=== PATIENT | male | born 1940 | race Caucasian/White ===

== ENCOUNTER → 2016-03-30 | Outpatient (CLI) | payer MEDICARE | LOC: RAD 10:05 | PROVIDERS: ATTEND Family Medicine | DX: N28.81 Hypertrophy of kidney (principal) | CPT/HCPCS: 76775 ==

== ENCOUNTER → 2016-04-07 | Outpatient (CLI) | payer MEDICARE | LOC: OD 17:11 | PROVIDERS: ATTEND Family Medicine | DX: M54.2 Cervicalgia (principal); M47.892 Other spondylosis, cervical region | CPT/HCPCS: 72050 ==

== ENCOUNTER 2016-05-10 09:15 | Day surgery (SDC) | payer MEDICARE ==
[~2016-05-10 09:15] MED LIST: PROPOFOL INJ 200 MG/20 ML VIAL IV ONE
[2016-05-10 10:47] VITALS: BP 112/72
--- NOTE | 2016-05-10 12:26 | Operative Report ---
Operative Report DATE OF SURGERY: 05/10/16 Operative Report: The risks benefits and alternatives of the procedure explained to the patient in detail and informed consent is obtained that GIF Olympus video scope was inserted into the patient's mouth and hypopharynx the esophagus is identified intubated and insufflated the scope was then advanced through the esophagus stomach and duodenum retroflexion maneuver is done the esophagus stomach and first and second portions of the duodenum examined PREOPERATIVE DIAGNOSIS: Regurgitation, nausea vomiting POSTOPERATIVE DIAGNOSIS: Duodenitis, gastritis, biopsies obtained to rule out for Helicobacter pylori. Hiatal hernia OPERATION: EGD with biopsy SURGEON: MARYURI ACHARYA ANESTHESIA: LMAC TISSUE REMOVED OR ALTERED: Gastric specimen obtained rule out Helicobacter pylori COMPLICATIONS: None. ESTIMATED BLOOD LOSS: none. INTRAOPERATIVE FINDINGS: As described above. No ulcers noted. PROCEDURE: Patient tolerated the procedure well. No immediate postprocedure complications are noted. Patient is discharged in good condition. Discharge date 05/10/2016. Discharge diet: Regular. Discharge activity: Regular. 2-3 week follow-up to discuss findings. We'll await on biopsies. Patient is instructed call the office or proceed to the emergency room should there be any further issues or questions.
== END 2016-05-10 10:22 | disposition home or self-care (01) ==
LOC: END 09:15
PROVIDERS: ATTEND Internal Medicine Gastroenterology
PROC: 0DB68ZX Excision of Stomach, Via Natural or Artificial Opening Endoscopic, Diagnostic (ICD-10-PCS; principal; 2016-05-10 11:00)
DX: R11.10 Vomiting, unspecified (principal); K29.50 Unspecified chronic gastritis without bleeding; K29.80 Duodenitis without bleeding; I10 Essential (primary) hypertension; E78.5 Hyperlipidemia, unspecified; J44.9 Chronic obstructive pulmonary disease, unspecified; F17.210 Nicotine dependence, cigarettes, uncomplicated; Z79.51 Long term (current) use of inhaled steroids; Z88.8 Allergy status to other drugs, medicaments and biological substances; Z79.899 Other long term (current) drug therapy
CPT/HCPCS: 43239; 88341 ×2; 88305 ×2; J2704; 740

== ENCOUNTER 2016-05-13 22:05 | Emergency (ER) | payer MEDICARE ==
[2016-05-13] MEDS ORDERED: IPRATROPIUM/ALBUTEROL 0.5-2.5 MG/3 ML AMPUL NEB ONE (23:48)
--- NOTE | 2016-05-14 | ER Document Report ---
ED General - General Chief Complaint: Weakness Stated Complaint: CHEST PAIN,SHORTNESS OF BREATH,FALL/HEAD PAIN Notes: Patient is 75-year-old male presents with complaint of falling. He's been following for approximate 4 months. His primary care doctor has been a full workup. He's had MRIs of his head which were negative. X-ray of the cervical spine was negative. He does have a walker at home. He says he sometimes uses a walker. He says he does not feel like the room is spinning. He does not feel nauseous or feel like just the vomit. He says that he just feels as if he is off balance and his whole body's week. He did quit smoking February 07. He says only time he has chest pains if he is coughing. He does feel some shortness of breath. No history of coronary disease. No fevers or infections. No focal weakness or numbness. No other complaints at this time. TRAVEL OUTSIDE OF THE [place] IN LAST 30 DAYS: No - Related Data Allergies/Adverse Reactions: ertapenem [From Invanz] Adverse Reaction (Verified 05/13/16 22:32) Hives Past Medical History - Social History Smoking Status: Former Smoker Frequency of alcohol use: None Drug Abuse: None Family History: Reviewed & Not Pertinent Patient has suicidal ideation: No Patient has homicidal ideation: No - Past Medical History Cardiac Medical History: Reports: Hx Hypertension Denies: Hx Coronary Artery Disease, Hx Heart Attack Pulmonary Medical History: Reports: Hx COPD, Hx Pneumonia Denies: Hx Asthma, Hx Bronchitis Neurological Medical History: Denies: Hx Cerebrovascular Accident, Hx Seizures Renal/ Medical History: Denies: Hx Peritoneal Dialysis Musculoskeltal Medical History: Reports Hx Arthritis Past Surgical History: Denies: Hx Pacemaker - Immunizations Hx Diphtheria, Pertussis, Tetanus Vaccination: Yes Hx Pneumococcal Vaccination: 02/07/15 Review of Systems - Review of Systems Notes: My Normal Review Basic REVIEW OF SYSTEMS: CONSTITUTIONAL : Denies fever, chills, or sweats. Denies recent illness. EENT: Denies eye, ear, throat, or mouth pain or symptoms. Denies nasal or sinus congestion. CARDIOVASCULAR: Denies chest pain with cough RESPIRATORY: Cough GASTROINTESTINAL: Denies abdominal pain. Denies nausea, vomiting, or diarrhea. Denies constipation. Last BM: MUSCULOSKELETAL: Denies neck or back pain or joint pain or swelling. SKIN: Denies rash or skin lesions. NEUROLOGICAL: Denies altered mental status or loss of consciousness. Denies headache. Denies weakness or paralysis or loss of use of either side. Denies problems with gait or speech. Denies sensory or motor loss. ALL OTHER SYSTEMS REVIEWED AND NEGATIVE. Physical Exam - Vital signs Vitals: Temp Pulse Resp BP Pulse Ox 97.7 F 98 20 98/71 L 96 05/13/16 22:23 05/13/16 22:23 05/13/16 22:23 05/13/16 22:23 05/13/16 22:23 - Notes Notes: General Appearance: Well nourished, alert, cooperative, no acute distress, no obvious discomfort. Vitals: reviewed, See vital signs table. Head: no swelling or tenderness to the head Eyes: PERRL, EOMI, Conjuctiva clear Mouth: No decreasd moisture Throat: No tonsillar inflammation, No airway obstruction, No lymphadenopathy Ears: No wax in the right ear. Small amount of wax in the left ear. TMs are usually visualized bilaterally and normal appearing. Neck: Supple, no neck tenderness, No thyromegaly Lungs: No wheezing, No rales, rhonchorus breath sounds., No accessory muscle use , good air exchange bilaterally. Heart: Normal rate, Regular rythm, No murmur, no rub Abdomen: Normal BS, soft, No rigidity, No abdominal tenderness, No guarding, no rebound, no abdominal masses, no organomegaly Extremities: strength 5/5 in all extremities, good pulses in all extremities, no swelling or tenderness in the extremities, no edema. Skin: warm, dry, appropriate color, no rash Neuro: speech clear, oriented x 3, normal affect, responds appropriately to questions. Cranial nerves II through XII are intact. Patient is globally weak on exam. He is able to stand but obviously has some balance issues when standing. Patient appears off balance with or without doing the Romberg. He is able to keep his arm still without any drift. Course - Re-evaluation Re-evalutation: 05/14/16 01:48 Patient's troponin is very elevated. I do not see any other reason first troponin elevation and possible an STEMI. His renal function is completely normal. He has no previous history of coronary disease. I do not think that an STEMI is causing his 4 months of ataxia; however, I do think it's contributing to the severe weakness he's been having over last week. He did mention some intermittent chest pain. Currently he is chest pain-free at this time. I will give patient a dose of aspirin. I will also give him a dose of Lovenox. He denies any recent bleeding. Denies vomiting blood. No recent blood in the stool. No other complaint at this time. I do have a call out to [facility] for possible transfer for and am waiting to hear back. 05/14/16 01:49 - Vital Signs Vital signs: Temp Pulse Resp BP Pulse Ox 97.9 F 98 15 98/54 L 98 05/14/16 02:56 05/13/16 22:23 05/14/16 06:37 05/14/16 06:37 05/14/16 06:37 - Laboratory Result Diagrams: 05/14/16 00:46 05/14/16 00:46 Laboratory results interpreted by me: 05/14/16 05/14/16 05/14/16 00:46 00:46 00:46 WBC 12.9 H RBC 5.68 H MCH 26.9 L Absolute Neutrophils 9.2 H Potassium 3.4 L BUN 25 H Est GFR (Non-Af Amer) 59 L Glucose 139 H Calcium 10.5 H Creatine Kinase 211 H CK-MB (CK-2) 10.20 H Urine Ketones 05/14/16 00:46 WBC RBC MCH Absolute Neutrophils Potassium BUN Est GFR (Non-Af Amer) Glucose Calcium Creatine Kinase CK-MB (CK-2) Urine Ketones TRACE H - Transfer of Care Notes: 05/14/16 07:35 At this reevaluated the patient. He has no chest pain. He is eating and feels well. His no click to this time. His lung nixon are clear. His blood pressure is 117/84. We are still awaiting transport to [facility] to [place] for workup of his NSTEMI Discharge - Discharge Clinical Impression: NSTEMI (non-ST elevated myocardial infarction), Weakness, Ataxia Disposition: [facility] Referrals: SEBASTIAN CASTELLANOS MD [Primary Care Provider] - Follow up as needed
[2016-05-14 01:03] LABS: ABSOLUTE BASOPHILS # (AUTO) 0.1 10^3/uL (0.0-0.2); ABSOLUTE LYMPHOCYTES (AUTO) 2.5 10^3/uL (0.5-4.7); ABSOLUTE NEUT (AUTO) 9.2 10^3/uL (1.7-8.2); BASOPHILS % (AUTO) 0.9 % (0-2); EOSINOPHILS % (AUTO) 0.3 % (0-6); HEMATOCRIT 45.4 % (37.9-51.0); HEMOGLOBIN 15.3 g/dL (13.5-17.0); HGB HCT DIFFERENCE 0.5; LYMPHOCYTES % (AUTO) 19.4 % (13-45); MEAN CORPUSCULAR HEMOGLOBIN 26.9 pg (27.0-33.4); MEAN CORPUSCULAR HGB CONC 33.6 g/dL (32.0-36.0); MEAN CORPUSCULAR VOLUME 80 fl (80-97); MONOCYTES % (AUTO) 7.8 % (3-13); RED BLOOD COUNT 5.68 10^6/uL (4.35-5.55); RED CELL DISTRIBUTION WIDTH 13.4 % (11.5-14.0); SEGMENTED NEUTROPHILS % (AUTO) 71.6 % (42-78); WHITE BLOOD COUNT 12.9 10^3/uL (4.0-10.5)
[2016-05-14 01:05] LABS: APPEARANCE,URINE SLIGHTLY-CLOUDY; BILIRUBIN,URINE NEGATIVE (NEGATIVE); GLUCOSE, URINE NEGATIVE (NEGATIVE); KETONES,URINE TRACE mg/dL (NEGATIVE); LEUKOCYTE ESTERASE,URINE NEGATIVE (NEGATIVE); NITRITE,URINE NEGATIVE (NEGATIVE); PROTEIN,URINE NEGATIVE (NEGATIVE); URINE SPECIFIC GRAVITY 1.026; UROBILINOGEN,URINE NEGATIVE mg/dL (<2.0)
[2016-05-14] MEDS ORDERED: MORPHINE SULFATE 10 MG/ML INJ IV ONE (01:12)
[2016-05-14 01:18] LABS: ALBUMIN 3.9 g/dL (3.5-5.0); ANION GAP 12 (5-19); BILIRUBIN,DIRECT 0.3 mg/dL (0.0-0.4); BILIRUBIN,TOTAL 0.8 mg/dL (0.2-1.3); BLOOD UREA NITROGEN 25 mg/dL (7-20); CARBON DIOXIDE 27 mmol/L (22-30); CHLORIDE 105 mmol/L (98-107); CREATININE RESULT 1.21 mg/dL (0.52-1.25); GLUCOSE 139 mg/dL (75-110); MAGNESIUM 2.2 mg/dL (1.6-2.3); NEONATAL BILIRUBIN RESULT 0.6 mg/dL (0.1-1.1); POTASSIUM 3.4 mmol/L (3.6-5.0); SODIUM 144.3 mmol/L (137-145); TOTAL PROTEIN 7.6 g/dL (6.3-8.2)
[2016-05-14 01:25] LABS: ALANINE AMINOTRANSFERASE 24 U/L (21-72); ALKALINE PHOSPHATASE 123 U/L (38-126); ASPARTATE AMINO TRANSFERASE 56 U/L (17-59); CALCIUM 10.5 mg/dL (8.4-10.2); CREATINE KINASE 211 U/L (55-170)
[2016-05-14 01:30] LABS: CREATINE KINASE MB 10.2 ng/mL (<4.55)
[2016-05-14 01:32] LABS: TROPONIN I 3.08 ng/mL
[2016-05-14] MEDS ORDERED: POTASSIUM CHLORIDE 10 MEQ TABLET.SA PO ONE (01:39)
[2016-05-14] MEDS ORDERED: ASPIRIN 325 MG TABLET PO ONE (01:45)
[2016-05-14] MEDS ORDERED: ENOXAPARIN SODIUM INJ 80 MG/0.8 ML DISP.SYRIN SUBCUT SCH (02:00)
[2016-05-14] MEDS ORDERED: ENOXAPARIN SODIUM INJ 80 MG/0.8 ML DISP.SYRIN SUBCUT ONE (02:00)
[2016-05-14] MEDS ORDERED: NORMAL SALINE 1000 ML 500 ML IV ONE ×2 (02:27→06:45)
[2016-05-14 08:38] VITALS: BP 97/67
--- NOTE | 2016-05-14 22:32 | EKG REPORT ---
SEVERITY:- ABNORMAL ECG - SINUS TACHYCARDIA INCOMPLETE RIGHT BUNDLE BRANCH BLOCK INFERIOR INFARCT, AGE INDETERMINATE ANTERIOR INFARCT, AGE INDETERMINATE : Confirmed by: Laura Ludwig MD 14-May-2016 22:30:44
== END 2016-05-14 08:38 | disposition short-term general hospital (02) ==
LOC: ER 22:05
DX: I21.4 Non-ST elevation (NSTEMI) myocardial infarction (principal); I10 Essential (primary) hypertension; R27.0 Ataxia, unspecified; R29.6 Repeated falls; R53.1 Weakness; R06.02 Shortness of breath; J44.9 Chronic obstructive pulmonary disease, unspecified; R05 Cough; Z87.891 Personal history of nicotine dependence; R07.9 Chest pain, unspecified
CPT/HCPCS: 93005; 99285; 94640; 96374; 96375; 36415; 82553; 82607; 82550; 83735; 85025; 80053; 81001; 84484; 71010; 70450; 72125; 93010; A9270 ×3; J2270; J1650; J7620